=== PATIENT | female | born 1950 | race African-American/Black ===

== ENCOUNTER 2017-07-12 05:24 | Emergency (ER) | payer MEDICARE, MEDICAID, OTHER | END 2017-07-12 06:38 | disposition home or self-care (01) | LOC: EDBD 05:24 → ERS 05:24 | DX: E11.649 Type 2 diabetes mellitus with hypoglycemia without coma (principal); I13.2 Hypertensive heart and chronic kidney disease with heart failure and with stage 5 chronic kidney disease, or end stage renal disease; E11.22 Type 2 diabetes mellitus with diabetic chronic kidney disease; N18.6 End stage renal disease; I50.9 Heart failure, unspecified; E78.00 Pure hypercholesterolemia, unspecified; F17.220 Nicotine dependence, chewing tobacco, uncomplicated; Z71.6 Tobacco abuse counseling | CPT/HCPCS: 36416; 99406 ==

== ENCOUNTER 2021-12-22 13:18 | Outpatient (CLI) | payer OTHER, MEDICAID | END 2021-12-22 13:19 | disposition home or self-care (01) | LOC: LABBT 13:18 | PROVIDERS: ATTEND Specialist | DX: N18.6 End stage renal disease (principal); Z20.822 Contact with and (suspected) exposure to COVID-19 | CPT/HCPCS: 87811 ==

== ENCOUNTER 2021-12-24 07:34 | Day surgery (SDC) | payer OTHER, MEDICAID ==
[2021-12-23 10:46] VITALS: BMI 22.9
[2021-12-24 08:37] LABS: #Eosinphils 0.2 thou/uL (0.0-0.7); #Lymphocytes 0.5 thou/uL (1.20-3.40); #Monocytes 0.3 thou/uL (0.11-0.59); #Neutrophils 2.2 thou/uL (1.40-6.50); %Eosinophils 7.5 % (0.0-10.0); %Lymphocytes 16.4 % (21.0-51.0); %Monocytes 10.5 % (0.0-10.0); %Neutrophils 65.7 % (42.0-75.0); Hemoglobin 9.4 g/dL (12.0-16.0); Mean Corpuscular HGB CONC 31.8 g/dL (32.0-36.0); Mean Corpuscular Volume 88.2 fL (78.0-98.0); Mean Platelet Volume 7.6 fL (7.4-10.4); Platelet Count 138 thou/uL (130-400); RBC Distribution Width 14.3 % (11.5-14.5); Red Blood Cell (RBC) Count 3.35 mill/uL (4.20-5.40); White Blood Cell (WBC) Count 3.3 thou/uL (4.8-10.8)
[2021-12-24 08:56] LABS: Anion Gap 12 mmol/L (10-20); BUN (Urea Nitrogen) 20 mg/dL (9.8-20.1); Calc. Creatinine Clearance 9 mL/min (70-130); Calcium 9.5 mg/dL (7.8-10.44); Carbon Dioxide 32 mmol/L (23-31); Chloride 102 mmol/L (98-107); Estimated GFR 8; Glucose 84 mg/dL (83-110); Potassium 4.2 mmol/L (3.5-5.1); Sodium 142 mmol/L (136-145)
[2021-12-24] MEDS ORDERED: Heparin 5,000 UNITS/ML VIAL ONE (10:31)
[2021-12-24] MEDS ORDERED: Iopamidol 0 ML ONE (10:31)
[2021-12-24] MEDS ORDERED: Protamine Sulfate 50 MG/5 ML VIAL ONE (10:31)
[2021-12-24] MEDS ORDERED: Bupivacaine PF 0.5% 30 ML VIAL ONE (10:31)
[2021-12-24] MEDS ORDERED: Lidocaine 1% w/Epinephrine 1:200K 30 ML VIAL ONE (10:31)
[2021-12-24] MEDS ORDERED: fentaNYL Citrate/PF 100 MCG/2 ML SYRINGE ONE (10:32)
[2021-12-24] MEDS ORDERED: Levofloxacin 500 mg/D5W 100 ml Premix Bag ONE (10:41)
[2021-12-24] MEDS ORDERED: Heparin 10,000 UNITS/ 10 ML VIAL ONE (10:54)
[2021-12-24] MEDS ORDERED: PROPOFOL 200 MG/20 ML VIAL ONE (10:55)
[2021-12-24] MEDS ORDERED: Phenylephrine 10 MG/ML VIAL ONE (10:55)
[2021-12-24] MEDS ORDERED: Lidocaine 1% PF 5 ML VIAL ONE (10:55)
[2021-12-24] MEDS ORDERED: Rocuronium Bromide 10 MG/ML (10ML VIAL) ONE (10:55)
[2021-12-24] MEDS ORDERED: Ondansetron PF 4 MG/2 ML Vial ONE (10:55)
[2021-12-24] MEDS ORDERED: ePHEDrine 50 MG/ML VIAL ONE (10:55)
[2021-12-24] MEDS ORDERED: SUGAMMADEX SODIUM 200 MG/2 ML VIAL ONE (12:56)
[2021-12-24] MEDS ORDERED: HYDROcodone/Acetaminophen 5/325 mg Tablet ONE (14:18)
[2021-12-24] MEDS ORDERED: Heparin 1,000 UNITS/ML VIAL ONE (15:26)
== END 2021-12-24 15:45 | disposition home or self-care (01) ==
LOC: SDC 07:34
PROVIDERS: ATTEND Specialist
PROC: 03170JV Bypass Right Brachial Artery to Superior Vena Cava with Synthetic Substitute, Open Approach (ICD-10-PCS; principal; 2021-12-24)
PROC: 03L Upper Arteries, Occlusion (ICD-10-PCS; 2021-12-24)
PROC: 0JBD0ZZ Excision of Right Upper Arm Subcutaneous Tissue and Fascia, Open Approach (ICD-10-PCS; 2021-12-24)
DX: I12.0 Hypertensive chronic kidney disease with stage 5 chronic kidney disease or end stage renal disease (principal); E11.22 Type 2 diabetes mellitus with diabetic chronic kidney disease; N18.6 End stage renal disease; T82.7XXA Infection and inflammatory reaction due to other cardiac and vascular devices, implants and grafts, initial encounter; T82.510A Breakdown (mechanical) of surgically created arteriovenous fistula, initial encounter; E78.5 Hyperlipidemia, unspecified; F17.220 Nicotine dependence, chewing tobacco, uncomplicated; Z85.3 Personal history of malignant neoplasm of breast; Z79.2 Long term (current) use of antibiotics; Z79.811 Long term (current) use of aromatase inhibitors; Z79.899 Other long term (current) drug therapy; Z88.0 Allergy status to penicillin; Z88.5 Allergy status to narcotic agent; Z95.820 Peripheral vascular angioplasty status with implants and grafts; Z99.2 Dependence on renal dialysis; Y81.3 Surgical instruments, materials and general- and plastic-surgery devices (including sutures) associated with adverse incidents
CPT/HCPCS: 71045; 76000; 80048; 85025; 86850; 86900; 86901; 93005; 93010; C1776; J1644; J1956; J2370; J2405; J2704; J2720; J3490; Q9967; S0020